=== PATIENT | female | born 1995 | race Two or more races ===

== ENCOUNTER 2017-06-01 16:50 | Observation (INO) | payer OTHER ==
[~2017-06-01] VITALS: Ht 160 cm; Wt 92.5 kg
[2017-06-01] MEDS ORDERED: ONDANSETRON HCL 4 MG/2 ML VIAL IV PRN (17:45)
[2017-06-01] MEDS ORDERED: LACTATED RINGER'S 1,000 ML IV ONE (17:45)
== END 2017-06-01 19:55 | disposition home or self-care (01) | DRG 781 ==
LOC: LDRP 16:50
PROVIDERS: ADMIT Obstetrics & Gynecology; ATTEND Obstetrics & Gynecology
DX: O26.893 Other specified pregnancy related conditions, third trimester (principal); R10.9 Unspecified abdominal pain; W19.XXXA Unspecified fall, initial encounter; Z3A.33 33 weeks gestation of pregnancy; Y93.89 Activity, other specified; Y92.89 Other specified places as the place of occurrence of the external cause; Y99.8 Other external cause status
CPT/HCPCS: 59025; 76815; 81002; 96360; G0378